=== PATIENT | male | born 1950 ===

== ENCOUNTER → 2016-06-11 | Outpatient (CLI) | payer BC, OTHER ==
[2016-06-11 09:32] LABS: ABSOLUTE EOSINOPHILS # (AUTO) 0.1 10^3/uL (0.0-0.6); ABSOLUTE LYMPHOCYTES (AUTO) 1.5 10^3/uL (0.5-4.7); ABSOLUTE MONOCYTES (AUTO) 0.6 10^3/uL (0.1-1.4); ABSOLUTE NEUT (AUTO) 3.7 10^3/uL (1.7-8.2); BASOPHILS % (AUTO) 0.3 % (0-2); EOSINOPHILS % (AUTO) 2.4 % (0-6); HEMATOCRIT 42.3 % (37.9-51.0); HEMOGLOBIN 14.3 g/dL (13.5-17.0); HGB HCT DIFFERENCE 0.6; LYMPHOCYTES % (AUTO) 25.2 % (13-45); MEAN CORPUSCULAR HEMOGLOBIN 29.5 pg (27.0-33.4); MEAN CORPUSCULAR HGB CONC 33.8 g/dL (32.0-36.0); MEAN CORPUSCULAR VOLUME 87 fl (80-97); MONOCYTES % (AUTO) 10.6 % (3-13); RED BLOOD COUNT 4.84 10^6/uL (4.35-5.55); RED CELL DISTRIBUTION WIDTH 13.4 % (11.5-14.0); SEGMENTED NEUTROPHILS % (AUTO) 61.5 % (42-78)
[2016-06-11 10:05] LABS: ANION GAP 13 (5-19); BLOOD UREA NITROGEN 16 mg/dL (7-20); CALCIUM 9.1 mg/dL (8.4-10.2); CARBON DIOXIDE 28 mmol/L (22-30); CHLORIDE 99 mmol/L (98-107); CREATININE RESULT 0.94 mg/dL (0.52-1.25); GLUCOSE 95 mg/dL (75-110); LDH 430 U/L (313-618); SODIUM 139.6 mmol/L (137-145)
== END ==
LOC: OD 08:44
PROVIDERS: ATTEND Radiology Radiation Oncology
DX: C83.32 Diffuse large B-cell lymphoma, intrathoracic lymph nodes (principal)
CPT/HCPCS: 36415; 80048; 83615; 85025

== ENCOUNTER → 2017-06-08 | Outpatient (CLI) | payer MEDICARE, BC ==
[2017-06-08 11:57] LABS: ABSOLUTE EOSINOPHILS # (AUTO) 0.1 10^3/uL (0.0-0.6); ABSOLUTE LYMPHOCYTES (AUTO) 1.6 10^3/uL (0.5-4.7); ABSOLUTE MONOCYTES (AUTO) 0.5 10^3/uL (0.1-1.4); ABSOLUTE NEUT (AUTO) 3.1 10^3/uL (1.7-8.2); BASOPHILS % (AUTO) 0.3 % (0-2); EOSINOPHILS % (AUTO) 1.2 % (0-6); HEMATOCRIT 41.7 % (37.9-51.0); LYMPHOCYTES % (AUTO) 29.6 % (13-45); MEAN CORPUSCULAR HEMOGLOBIN 29.6 pg (27.0-33.4); MEAN CORPUSCULAR HGB CONC 33.6 g/dL (32.0-36.0); MEAN CORPUSCULAR VOLUME 88 fl (80-97); MONOCYTES % (AUTO) 10.2 % (3-13); PLATELET COUNT 265 10^3/uL (150-450); RED BLOOD COUNT 4.73 10^6/uL (4.35-5.55); RED CELL DISTRIBUTION WIDTH 13.2 % (11.5-14.0); SEGMENTED NEUTROPHILS % (AUTO) 58.7 % (42-78); TOTAL CELLS COUNTED % (AUTO) 100 %; WHITE BLOOD COUNT 5.3 10^3/uL (4.0-10.5)
== END ==
LOC: OD 10:19
PROVIDERS: ATTEND Radiology Radiation Oncology
DX: C83.32 Diffuse large B-cell lymphoma, intrathoracic lymph nodes (principal)
CPT/HCPCS: 36415; 83615; 85025

== ENCOUNTER 2018-06-03 18:39 | Emergency (ER) | payer MEDICARE, BC ==
--- NOTE | 2018-06-03 19:06 | ER Document Report ---
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 He also has hypothyroidism. He reports onset yesterday of some substernal chest discomfort which is sharp in nature and intermittent. It became more severe just prior to arrival when [facility]. Nothing seems to make it better or worse. I have greeted and performed a rapid initial assessment of this patient. A comprehensive ED assessment and evaluation of the patient, analysis of test results and completion of the medical decision making process will be conducted by additional ED providers. TRAVEL OUTSIDE OF THE [place] IN LAST 30 DAYS: No - Related Data Allergies/Adverse Reactions: clindamycin Allergy (Verified 06/03/18 18:54) metoclopramide [From Reglan] Allergy (Verified 06/03/18 18:54) Past Medical History - Social History Frequency of alcohol use: None Drug Abuse: None Renal/ Medical History: Denies: Hx Peritoneal Dialysis Past Surgical History: Reports: Hx Orthopedic Surgery - lumbar fusion Physical Exam - Vital signs Vitals: Temp Pulse Resp BP Pulse Ox 98 F 93 18 162/93 H 99 06/03/18 18:44 06/03/18 18:44 06/03/18 18:44 06/03/18 18:44 06/03/18 18:44 Course - Vital Signs Vital signs: Temp Pulse Resp BP Pulse Ox 98 F 93 18 162/93 H 99 06/03/18 18:44 06/03/18 18:44 06/03/18 18:44 06/03/18 18:44 06/03/18 18:44 Doctor's Discharge - Discharge Referrals: SEAN STERN DO [Primary Care Provider] - Follow up as needed
--- NOTE | 2018-06-03 19:20 | EKG REPORT ---
SEVERITY:- ABNORMAL ECG - SINUS RHYTHM CONSIDER POSTERIOR INFARCT MINIMAL ST DEPRESSION, INFERIOR LEADS : Confirmed by: Meron Sanford MD 03-Jun-2018 19:19:09
--- NOTE | 2018-06-03 19:25 | RADIOLOGY REPORT (SQ) ---
EXAM DESCRIPTION: CHEST 2 VIEWS COMPLETED DATE/TIME: 06/03/2018 7:18 pm REASON FOR STUDY: Chest pain COMPARISON: 10/22/2008. EXAM PARAMETERS: NUMBER OF VIEWS: two views TECHNIQUE: Digital Frontal and Lateral radiographic views of the chest acquired. RADIATION DOSE: NA LIMITATIONS: none FINDINGS: LUNGS AND PLEURA: No opacities, masses or pneumothorax. No pleural effusion. MEDIASTINUM AND HILAR STRUCTURES: No masses or contour abnormalities. HEART AND VASCULAR STRUCTURES: Heart normal size. No evidence for failure. BONES: No acute findings. HARDWARE: None in the chest. OTHER: No other significant finding. IMPRESSION: NO ACUTE RADIOGRAPHIC FINDING IN THE CHEST. TECHNICAL DOCUMENTATION: JOB ID: [id number] [email or web address]- All Rights Reserved Reading location - IP/workstation name: [email or web address]
[2018-06-03 20:00] LABS: ABSOLUTE EOSINOPHILS # (AUTO) 0.1 10^3/uL (0.0-0.6); ABSOLUTE LYMPHOCYTES (AUTO) 1.9 10^3/uL (0.5-4.7); ABSOLUTE MONOCYTES (AUTO) 0.7 10^3/uL (0.1-1.4); BASOPHILS % (AUTO) 0.4 % (0-2); EOSINOPHILS % (AUTO) 1.2 % (0-6); HEMATOCRIT 43.4 % (37.9-51.0); HEMOGLOBIN 14.8 g/dL (13.5-17.0); LYMPHOCYTES % (AUTO) 27.9 % (13-45); MEAN CORPUSCULAR HGB CONC 34.2 g/dL (32.0-36.0); MEAN CORPUSCULAR VOLUME 88 fl (80-97); PLATELET COUNT 279 10^3/uL (150-450); RED BLOOD COUNT 4.94 10^6/uL (4.35-5.55); RED CELL DISTRIBUTION WIDTH 13.4 % (11.5-14.0); SEGMENTED NEUTROPHILS % (AUTO) 60.5 % (42-78); TOTAL CELLS COUNTED % (AUTO) 100 %; WHITE BLOOD COUNT 6.7 10^3/uL (4.0-10.5)
[2018-06-03 20:10] LABS: ALANINE AMINOTRANSFERASE 44 U/L (21-72); ALBUMIN 4.9 g/dL (3.5-5.0); ALKALINE PHOSPHATASE 59 U/L (38-126); ANION GAP 11 (5-19); ASPARTATE AMINO TRANSFERASE 35 U/L (17-59); BILIRUBIN,DIRECT 0.2 mg/dL (0.0-0.4); BILIRUBIN,TOTAL 0.3 mg/dL (0.2-1.3); BLOOD UREA NITROGEN 15 mg/dL (7-20); CALCIUM 10.1 mg/dL (8.4-10.2); CARBON DIOXIDE 27 mmol/L (22-30); CHLORIDE 103 mmol/L (98-107); CREATINE KINASE 108 U/L (55-170); GLUCOSE 117 mg/dL (75-110); POTASSIUM 3.8 mmol/L (3.6-5.0); SODIUM 140.5 mmol/L (137-145); TOTAL PROTEIN 8.6 g/dL (6.3-8.2)
[2018-06-03 20:11] LABS: APPEARANCE,URINE SLIGHTLY-CLOUDY; BILIRUBIN,URINE NEGATIVE (NEGATIVE); COLOR,URINE YELLOW; GLUCOSE, URINE NEGATIVE (NEGATIVE); KETONES,URINE NEGATIVE (NEGATIVE); LEUKOCYTE ESTERASE,URINE NEGATIVE (NEGATIVE); NITRITE,URINE NEGATIVE (NEGATIVE); PROTEIN,URINE NEGATIVE (NEGATIVE); URINE SPECIFIC GRAVITY 1.015; UROBILINOGEN,URINE NEGATIVE mg/dL (<2.0)
[2018-06-03] MEDS ORDERED: ONDANSETRON HCL INJ/PF 4 MG/2 ML SDV IV ONE (20:18)
[2018-06-03] MEDS ORDERED: ASPIRIN 81 MG TABLET, CHEWABLE PO ONE (20:18)
[2018-06-03] MEDS ORDERED: MORPHINE SULFATE 10 MG/ML INJ IV ONE ×2 (20:18→23:45)
--- NOTE | 2018-06-03 20:21 | ER Document Report ---
ED Cardiac - General Chief Complaint: Chest Pain Stated Complaint: CHEST PAIN Time Seen by Provider: 06/03/18 19:00 Primary Care Provider: SEAN STERN DO [ACTIVE STAFF] - Follow up as needed Notes: Patient is a 67-year-old male that comes to the emergency department for chief complaint of pain in the center of his chest. He states he started noticing intermittent pains yesterday, today about 30 minutes prior to arrival pain became much worse and constant. He states the pain feels like it is just below his sternum. No radiation of pain, no shortness of breath, no vomiting or nausea. He denies abdominal pain or flank pain. He denies dizziness. He states that if he takes a deep breath and holds it it seems to relieve the pain but. No other relieving or exacerbating factors. He denies injury, fever, cough. Past medical history of non-Hodgkin's lymphoma, completed chemotherapy, has some residual neuropathy afterwards. This was over 10 years ago. Only other medical history reported is lumbar fusion. Denies hypertension, diabetes, hyperlipidemia. He does have positive family history with brother and father having MIs. Patient states that he has factor V Leiden, at one point he was placed on Coumadin but then taken off. He has never had a blood clot. He denies smoking, recent travel, lower extremity swelling. TRAVEL OUTSIDE OF THE [place] IN LAST 30 DAYS: No - Related Data Allergies/Adverse Reactions: clindamycin Allergy (Verified 06/03/18 18:54) metoclopramide [From Reglan] Allergy (Verified 06/03/18 18:54) Past Medical History - General Information source: Patient - Social History Smoking Status: Never Smoker Frequency of alcohol use: None Drug Abuse: None Lives with: Family Family History: CAD - brother and father had NV Patient has suicidal ideation: No Patient has homicidal ideation: No Neurological Medical History: Reports: Other - Peripheral neuropathy Renal/ Medical History: Denies: Hx Peritoneal Dialysis Malignancy Medical History: Reports Other - Non-Hodgkin's lymphoma Past Surgical History: Reports: Hx Orthopedic Surgery - lumbar fusion - Immunizations Immunizations up to date: Yes Hx Diphtheria, Pertussis, Tetanus Vaccination: Yes Review of Systems - Review of Systems Constitutional: No symptoms reported EENT: No symptoms reported Cardiovascular: See HPI Respiratory: See HPI Gastrointestinal: No symptoms reported Genitourinary: No symptoms reported Male Genitourinary: No symptoms reported Musculoskeletal: No symptoms reported Skin: No symptoms reported Hematologic/Lymphatic: No symptoms reported Neurological/Psychological: No symptoms reported Physical Exam - Vital signs Vitals: Temp Pulse Resp BP Pulse Ox 98 F 93 18 162/93 H 99 06/03/18 18:44 06/03/18 18:44 06/03/18 18:44 06/03/18 18:44 06/03/18 18:44 - Notes Notes: GENERAL: Alert, interacts well. No acute distress. HEAD: Normocephalic, atraumatic. EYES: Pupils equal, round, and reactive to light. Extraocular movements intact. ENT: Oral mucosa moist, tongue midline. Oropharynx unremarkable. Airway patent. Nares patent, no nasal septal hematoma, TM's intact. NECK: Full range of motion. Supple. Trachea midline. LUNGS: Clear to auscultation bilaterally, no wheezes, rales, or rhonchi. No respiratory distress. No pain with palpation of the chest. HEART: Regular rate and rhythm. No murmur ABDOMEN: Soft, non-tender. Non-distended. Bowel sounds present in all 4 quadrants. GENITOURINARY: Deferred EXTREMITIES: Moves all 4 extremities spontaneously. No edema, normal radial and dorsalis pedis pulses bilaterally. No cyanosis. BACK: no cervical, thoracic, lumbar midline tenderness. No saddle anesthesia, normal distal neurovascular exam. NEUROLOGICAL: Alert and oriented x3. Normal speech. [cranial nerves II through XII grossly intact]. SKIN: Warm, dry, normal turgor. No rashes or lesions noted. Course - Re-evaluation Re-evalutation: EKG shows sinus bradycardia at the rate of 94, borderline ST segment depressions in inferior leads, T wave inversions inferiorly in lead III, SC interval of 172, QTC of 441. Chest x-ray unremarkable. 06/03/18 20:50 Patient reporting increased pressure in the chest, nursing just medicated him with morphine, he just got his Aspirin, I came to the room to reevaluate him and he states now the pressure has resolved. No current complaints The rhythm strip at the time did show depressions, however the EKG was repeated now and is u nchanged. EKG shows sinus rhythm at a rate of 89. ST segments without significant change, no T wave inversions in consecutive leads. Flattened T wave in aVL. SC interval is 172, QTC is 439. CBC unremarkable, chemistry unremarkable, troponin indeterminate at 0.043. 06/03/18 22:10 Troponin was repeated at approximately 2-hour anson because of my concern for patient having an NSTEMI. Patient is now in a NV range with new troponin of 0.768. Given Lovenox. Patient has been discussed with Dr. Cadena. Giving atorvastatin. Reevaluated patient at bedside, he is chest pain-free after his medications, no current complaints. He prefers to go to [place]. 06/03/18 22:[address] Dumont at [facility], patient is accepted for transfer. 06/03/18 23:28 Patient stating he is starting to get some slight discomfort in his chest, this is not comparable to prior to arrival to the emergency department, it is comparable to symptoms yesterday. Given some nitroglycerin. Dr. Cadena did evaluate patient at bedside. 06/04/18 01:03 Patient's pain improved with nitro but did not resolve. Given small amount of morphine, rechecked, and he is pain free. We have a room assignment, pending transport. 06/04/18 03:00 Patient's troponin has risen from 0.7 to 15.1. Patient has been reevaluated twice, he is still pain-free on my evaluation. EKG repeated and does not show concerning progression or change. I did call and update [facility], we are still awaiting transport, this is on delay, however patient has had a bed assignment. Discussed with Dr. Cadena. 06/04/18 04:45 Transfer team is here, patient reevaluated at bedside again, no current pain, no current complaints, vital signs unchanged. Stable for transport. - Vital Signs Vital signs: Temp Pulse Resp BP Pulse Ox 98.1 F 80 12 126/77 H 96 06/04/18 05:00 06/04/18 02:00 06/04/18 05:01 06/04/18 05:00 06/04/18 05:01 - Laboratory Result Diagrams: 06/03/18 19:34 06/03/18 19:34 Laboratory results interpreted by me: 06/03/18 06/03/18 19:34 19:34 Glucose 117 H Total Protein 8.6 H Urine Ascorbic Acid 40 H Critical Care Note - Critical Care Note Total time excluding time spent on procedures (mins): 35 - NSTEMI, chest pain Comments: Please allow 35 minutes of critical care time for evaluation and management of patient with an NSTEMI and chest pain at rest. Patient had to be evaluated multiple times, he had to be treated for chest pain multiple times, treatments for NSTEMI were performed, time spent performing additional interpretations of additional labs because of delay in transfer, time spent discussing and transferring to tertiary center. Discussed with tertiary center multiple times. Discharge - Discharge Clinical Impression: NSTEMI (non-ST elevated myocardial infarction) Chest pain Qualifiers: Chest pain type: unspecified Qualified Code(s): R07.9 - Chest pain, unspecified Condition: Stable Disposition: [facility] Referrals: SEAN STERN DO [ACTIVE STAFF] - Follow up as needed
[2018-06-03 20:22] LABS: CREATINE KINASE MB 1.69 ng/mL (<4.55)
[2018-06-03 20:26] LABS: TROPONIN I 0.043 ng/mL
[2018-06-03] MEDS ORDERED: ATORVASTATIN CALCIUM 80 MG TABLET PO ONE (22:15)
[2018-06-03] MEDS ORDERED: ENOXAPARIN SODIUM INJ 80 MG/0.8 ML DISP.SYRIN SUBCUT SCH (22:15)
[2018-06-03] MEDS ORDERED: NITROGLYCERIN 0.4 MG/TAB 25 TAB/BOTTLE SL PRN (23:25)
--- NOTE | 2018-06-04 01:07 | ER Document Report ---
Doctor's Note Notes: 06/04/18 01:05 I was consulted on this patient regarding by Oswald Jeronimo the PA caring for the patient. This patient is having findings consistent with an NSTEMI, subtle depressions in leads II and III, unchanged on repeat EKGs. Troponins have been continuing to elevate. She has received atorvastatin, aspirin, Lovenox. After receiving morphine and nitroglycerin patient is now currently pain-free. The patient is overall well in appearance, in no acute distress. Physical examination globally unremarkable. Has no previous history of cardiac disease. Given patient's elevated troponin, EKG findings he requires cardiac catheterization. The patient will be transfer to [facility] for cardiac catheterization. I am in agreement with management as provided by the physician investigative assistant and have done a complete assessment on this patient independent of the physician investigative assistant. PHYSICAL EXAMINATION: GENERAL: Well-appearing, well-nourished and in no acute distress. HEAD: Atraumatic, normocephalic. EYES: Pupils equal round and reactive to light, extraocular movements intact, sclera anicteric, conjunctiva are normal. ENT: nares patent, oropharynx clear without exudates. Moist mucous membranes. NECK: Normal range of motion, supple without lymphadenopathy LUNGS: Breath sounds clear to auscultation bilaterally and equal. No wheezes rales or rhonchi. HEART: Regular rate and rhythm without murmurs ABDOMEN: Soft, nontender, normoactive bowel sounds. No guarding, no rebound. No masses appreciated. EXTREMITIES: Normal range of motion, no pitting or edema. No cyanosis. NEUROLOGICAL: No focal neurological deficits. Moves all extremities spontaneously and on command. PSYCH: Normal mood, normal affect. SKIN: Warm, Dry, normal turgor, no rashes or lesions noted.
[2018-06-04 05:51] VITALS: BP 126/77
--- NOTE | 2018-06-04 11:08 | EKG REPORT ---
SEVERITY:- ABNORMAL ECG - SINUS OR ECTOPIC ATRIAL RHYTHM BORDERLINE LEFT AXIS DEVIATION : Confirmed by: Meron Sanford MD 04-Jun-2018 11:07:14
--- NOTE | 2018-06-04 11:08 | EKG REPORT ---
SEVERITY:- NORMAL ECG - SINUS RHYTHM : Confirmed by: Meron Sanford MD 04-Jun-2018 11:07:38
--- NOTE | 2018-06-05 12:55 | EKG REPORT ---
SEVERITY:- BORDERLINE ECG - SINUS RHYTHM EARLY PRECORDIAL TRANSITION, CONSIDER OLD TRUE POST MT., CLINICAL CORRELATION NEEDED. : Confirmed by: Ludwin Martinez MD 05-Jun-2018 12:54:45
== END 2018-06-04 05:05 | disposition short-term general hospital (02) ==
LOC: ER 18:39
DX: I21.4 Non-ST elevation (NSTEMI) myocardial infarction (principal); R07.9 Chest pain, unspecified; E03.9 Hypothyroidism, unspecified; Z88.3 Allergy status to other anti-infective agents; Z85.72 Personal history of non-Hodgkin lymphomas; Z98.1 Arthrodesis status
CPT/HCPCS: 93005 ×3; 96376; 99285; 96372; 96374; 96375; 36415; 82553; 82550; 85025; 80053; 81001; 84484; 71046; 93010 ×3; A9270 ×2; J2270; J2405; J1650